=== PATIENT | female | born 1965 | race African-American/Black ===

== ENCOUNTER → 2019-04-02 | Outpatient (CLI) | payer OTHER ==
[2019-04-02 10:53] LABS: PROTIME 10.7 Seconds (9.20-11.50)
[2019-04-02 11:05] LABS: ALBUMIN 3.5 g/dL (3.4-5.0); DIRECT BILIRUBIN 0.2 mg/dL (<0.1-0.3); TOTAL BILIRUBIN 0.7 mg/dL (<0.1-1.0); TOTAL PROTEIN 8.1 g/dL (6.4-8.2)
[2019-04-02 11:09] LABS: % SATURATION 44 % (20-39); IRON 159 ug/dL (50-175)
[2019-04-02 16:07] LABS: IgG 1837 mg/dL (700-1600); IgM 278 mg/dL (26-217)
[2019-04-03 12:08] LABS: HEPATITIS B SURFACE AG Negative (Negative)
[2019-04-03 12:08] LABS: GLYCOHEMOGLOBIN (HGB A1C) 5.4 % (4.8-5.6)
[2019-04-03 15:07] LABS: CERULOPLASMIN 34.5 mg/dL (19.0-39.0)
== END ==
LOC: M.LAB 09:51 → M.ULTRA 09:51
PROVIDERS: Physician Assistant
DX: R94.5 Abnormal results of liver function studies (principal); N28.89 Other specified disorders of kidney and ureter

== ENCOUNTER → 2019-04-23 | Outpatient (CLI) | payer OTHER ==
[2019-04-23 09:45] LABS: ALBUMIN 3.6 g/dL (3.4-5.0); DIRECT BILIRUBIN 0.1 mg/dL (<0.1-0.3); TOTAL BILIRUBIN 0.5 mg/dL (<0.1-1.0)
== END ==
LOC: M.LAB 08:41
PROVIDERS: Physician Assistant
DX: R94.5 Abnormal results of liver function studies (principal)

== ENCOUNTER 2021-10-21 16:56 | Emergency (ER) | payer OTHER ==
[~2021-10-21] VITALS: Ht 160 cm; Wt 74.4 kg
[2021-10-21] MEDS ORDERED: STOMACH MED (17:05)
[2021-10-21 19:51] LABS: URINE BILIRUBIN NEGATIVE (Negative); URINE BLOOD NEGATIVE (Negative); URINE CLARITY CLEAR; URINE COLOR YELLOW; URINE GLUCOSE-RANDOM NEGATIVE (Negative); URINE KETONES NEGATIVE (Negative); URINE LEUKOCYTES-REFLEX 1+ (Negative); URINE NITRITE-REFLEX NEGATIVE (Negative); URINE PROTEIN NEGATIVE (Negative); URINE UROBILINOGEN 0.2 E.U./dl (0.2-1.0)
[2021-10-21 19:58] LABS: SQUAMOUS >10 Many /LPF (0-3); URINE WBC-REFLEX 0-5 Rare /HPF (0-5)
[2021-10-21 19:59] LABS: BACTERIA-REFLEX 1-9 Few /HPF (None Seen); CASTS None Seen /LPF (None Seen); CRYSTALS None Seen /LPF (None Seen); MUCUS 0-3 Light strn/LPF (None Seen); URINE RBC 0-2 Rare /HPF (0-2)
[2021-10-21 20:35] LABS: ABSOLUTE EOSINOPHILS 0.1 thou/uL (0.0-0.7); ABSOLUTE LYMPHOCYTES 1.9 thou/uL (0.8-5.3); ABSOLUTE MONOCYTES 0.4 thou/uL (0.0-1.2); ABSOLUTE NEUTROPHILS 3.1 thou/uL (1.6-8.1); BASOPHILS 0.8 %; EOSINOPHILS 2.5 %; HEMATOCRIT 36.7 % (37.0-47.0); HEMOGLOBIN 11.8 gm/dL (12.0-15.0); LYMPHOCYTES 34.4 %; MCHC 32.1 g/dL (28.0-37.0); MCV 84.2 fL (80.0-100.0); MONOCYTES 7.5 %; MPV 8.7 fl. (7.2-11.1); NUCLEATED RBCS 0 /100WBC; PLATELET COUNT* 168 thou/uL (150-400); POLYS 54.8 %; RBC 4.35 mil/uL (4.20-5.00); RDW-CV 15.5 % (10.5-14.5); WBC 5.6 thou/uL (4.0-11.0)
[2021-10-21 20:50] LABS: CALCIUM 9.4 mg/dL (8.5-10.1); CREATININE 0.8 mg/dL (0.6-1.3); POTASSIUM 4.1 mmol/L (3.5-5.1)
[2021-10-21 20:55] LABS: ALBUMIN 3.8 g/dL (3.4-5.0); TOTAL BILIRUBIN 0.3 mg/dL (<0.1-1.0); TOTAL PROTEIN 7.7 g/dL (6.4-8.2)
[2021-10-21 22:02] VITALS: BP 130/70
--- NOTE | 2021-10-22 11:02 | EKG ---
[place] [address] ELECTROCARDIOGRAM REPORT Name: JAMESON RUSSO Room: [facility]#: [id number] Admission: 10/21/21 Attend Phys: Discharge: 10/21/21 Date of : 69 Date of Service: 10/21/21 170 Report #: [id number] THIS REPORT FOR: //name// [facility] ED Test Date: 2021-10-21 Test Time: 17:00:21 Pat Name: JAMESON RUSSO Department: Room: Gender: Barytes Grinder: : 1965 Requested By: Sarai Bermeo Order Number: [id number] MD: Dash Cohen Measurements Intervals [place] Rate: 66 P: 24 VT: 131 QRS: 11 QRSD: 93 T: 30 QT: 410 QTc: 430 Interpretive Statements Sinus rhythm No previous ECG available for comparison Electronically Signed On 10-22-2021 11:02:05 [employer] by Dash Cohen [email or web address] <ELECTRONICALLY SIGNED> By: Dash Cohen MD, [facility] 10/22/21 1102 99 99 Dash Cohen MD, FACC /EPI
== END 2021-10-21 22:02 | disposition home or self-care (01) ==
LOC: M.ERS 16:56
PROVIDERS: Personal Emergency Response Attendant
DX: R00.2 Palpitations (principal); Z71.1 Person with feared health complaint in whom no diagnosis is made